=== PATIENT | female | born 1985 | race African-American/Black ===

== ENCOUNTER 2016-08-05 17:30 | Emergency (ER) | payer OTHER ==
[2016-08-05 17:40] VITALS: BP 127/85; PULSE 83; TEMP 98.6; BMI 39.1
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
== END 2016-08-05 18:47 | disposition home or self-care (01) ==
LOC: FER 17:30
DX: S20.212A Contusion of left front wall of thorax, initial encounter (principal); Y04.2XXA Assault by strike against or bumped into by another person, initial encounter; Y93.89 Activity, other specified; Y92.159 Unspecified place in reform school as the place of occurrence of the external cause; Y99.0 Civilian activity done for income or pay
CPT/HCPCS: 99282-25

== ENCOUNTER 2016-09-25 22:55 | Emergency (ER) | payer OTHER ==
[2016-09-25 23:07] VITALS: BP 144/89; PULSE 76; TEMP 98.4; BMI 28.1
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
== END 2016-09-25 23:14 | disposition home or self-care (01) ==
LOC: FER 22:55
DX: M79.89 Other specified soft tissue disorders (principal); V89.9XXA Person injured in unspecified vehicle accident, initial encounter; Y93.9 Activity, unspecified; Y92.410 Unspecified street and highway as the place of occurrence of the external cause
CPT/HCPCS: 99282-25

== ENCOUNTER 2023-07-07 14:36 | Emergency (ER) | payer OTHER ==
[2023-07-07] MEDS ORDERED: IBUPROFEN 600 MG TABLET (FP) PO ONE ×2 (14:54→15:08)
[2023-07-07 15:17] VITALS: BP 144/107; PULSE 107; RESP 18; TEMP 102; BMI 34.9
[2023-07-07 16:50] LABS: THROAT:GRP A STREP NOT DETECTED (NOTDETECTED)
== END 2023-07-07 15:35 | disposition home or self-care (01) ==
LOC: FER 14:36
DX: R05.9 Cough, unspecified (principal); R50.9 Fever, unspecified; J18.9 Pneumonia, unspecified organism; Z20.822 Contact with and (suspected) exposure to COVID-19
CPT/HCPCS: 0241U-QW; 87651; 99283-25